=== PATIENT | male | born 1975 | race Asian ===

== ENCOUNTER 2016-05-09 19:00 | Emergency (ER) | payer BC ==
--- NOTE | 2016-05-09 20:07 | ED ---
Nam Almanzar Alok, scribed for Roscoe Singh MD on 05/09/16 at 1953 . GI/ HPI - History of Current Complaint Chief Complaint: EDForeignBodyEsophag Time Seen by Provider: 05/09/16 19:40 Stated Complaint: FISHBONE STUCK IN THROAT Pain Intensity: 5 - Allergy/Home Medications Allergies/Adverse Reactions: Allergies Allergy/AdvReac Type Severity Reaction Status Date / Time No Known Allergies Allergy Verified 05/09/16 19:10 PMH/Surg Hx/FS Hx/Imm Hx Infectious Disease History: No Infectious Disease History: Denies: Traveled Outside the [place] in Last 30 Days - Social History Alcohol Use: None Substance Use Type: Reports: None Smoking Status (MU): Never Smoked Tobacco Review of Systems Negative: Epistaxis Cardiovascular: Negative Negative: Shortness Of Breath Negative: Abdominal Pain Genitourinary: Negative Musculoskeletal: Negative Skin: Negative Neurological: Negative Psychological: Normal All Other Systems Reviewed And Are Negative: Yes Physical Exam Vital Signs On Initial Exam: Initial Vitals Temp Pulse Resp BP Pulse Ox 97.4 F 88 18 142/88 97 05/09/16 19:08 05/09/16 19:08 05/09/16 19:08 05/09/16 19:08 05/09/16 19:08 - Hi Coma Scale Coma Scale Total: 15 Diagnostics - Vital Signs Vital Signs Temp Pulse Resp BP Pulse Ox 05/09/16 19:08 97.4 F 88 18 142/88 97 - Laboratory Lab Statement: Any lab studies that have been ordered have been reviewed, and results considered in the medical decision making process. Re-Evaluation - Re-Evaluation First Eval Re-Evaluation Time: 19:57 - Informed Pt that no GI coverage was available, Pt has declined any XRays Change: Unchanged GIGU Course/Dx - Course Assessment/Plan: PATIENT WITH SENSATION OF FB AT LEVEL OF STERNAL NOTCH. THERE IS NO ENT OR GI COVERAGE AT [facility]. I DISCUSSED THIS WITH THE PATIENT. HE DECLINED TRANSFER. HE PREFERS TO RETURN IN THE AM IF NOT IMPROVED. WE DISCUSSED THE RISKS OF PERFORATION. HE STILL WISHES TO GO HOME AND RETURN IF PAIN PERSISTS OR WORSENS. DISCHARGE HOME STABLE. - Diagnoses Provider Diagnoses: Pharyngeal foreign body, Esophageal foreign body - Physician Notifications Discussed Care Of Patient With: Dr Epstein (GI) @ 19:50 - No GI supervisor show operations at this time Discharge - Discharge Plan Condition: Stable Disposition: HOME Patient Education Materials: Foreign Body in Pharynx (ED), Esophageal Foreign Body (ED) Referrals: No Primary Care [facility] [Primary Care Provider] - [facility] [Provider Group] [facility] [Provider Group] Additional Instructions: FOLLOW UP WITH YOUR DOCTOR. FOLLOW UP WITH ENT OR GASTROENTEROLOGY. RETURN TO THE EMERGENCY DEPARTMENT FOR ANY WORSENING OF YOUR CONDITION; PAIN, DIFFICULTY SWALLOWING OR BREATHING, YOU FEEL ILL OR QUESTIONS OR CONCERNS. The documentation as recorded by the Nam goodrich Alok accurately reflects the service I personally performed and the decisions made by me, Roscoe Singh MD.
[2016-05-09 20:18] VITALS: BP 148/78
--- NOTE | 2016-06-01 12:23 | ED ---
Nam Almanzar Alok, scribed for Roscoe Singh MD on 05/09/16 at 2012 . Progress - Progress Note Progress Note: 40 y/o male presents to the ED after swallowing a fishbone 15 minutes [employer]. Pt states that the fishbone was approximately 2cm in length, and since swallowing it he has been experiencing mild SOB as well as dysphagia and constant throat pain. He is able to swallow water, but this aggravates his throat pain. He denies any pertinent PMHx, stating he has been healthy in the past. Physical exam findings: General: Well-appearing, no pain distress Skin: Warm, color reflects adequate perfusion, dry Head/Face: Normal Eyes: EOMI, TRISTIAN ENT: Normal Neck: Supple, nontender Respiratory: CTA, breath present Cardiovascular: RRR Abdominal: Nontender, soft Bowel: Present Misc: Normal; strength/ROM intact Neuro: Normal; sensory/motor intact, A&Ox3 Psych: Affect/mood appropriate Re-Evaluation - Re-Evaluation First Eval Re-Evaluation Time: 19:57 - Informed Pt that no GI coverage was available, Pt has declined any XRays Change: Unchanged Course/Dx - Diagnoses Provider Diagnoses: Pharyngeal foreign body, Esophageal foreign body - Provider Notifications Discussed Care Of Patient With: Dr Epstein (GI) @ 19:50 - No GI bone density technician at this time The documentation as recorded by the Nam goodrich Alok accurately reflects the service I personally performed and the decisions made by Samantha palma William, MD.
== END 2016-05-09 20:16 | disposition home or self-care (01) ==
LOC: ED 19:00
DX: T18.108A Unspecified foreign body in esophagus causing other injury, initial encounter (principal); T17.998A Other foreign object in respiratory tract, part unspecified causing other injury, initial encounter
CPT/HCPCS: 99282